=== PATIENT | female | born 1960 | race Caucasian/White ===

== ENCOUNTER 2020-07-23 12:57 | Emergency (ER) | payer BC ==
[~2020-07-23] VITALS: Ht 157.5 cm; Wt 80.7 kg
[2020-07-23 13:22] VITALS: Ht 157.5 cm; Wt 80.7 kg
[2020-07-23 15:17] VITALS: BP 125/74
== END 2020-07-23 15:17 | disposition home or self-care (01) ==
LOC: ED 12:57
DX: S61.215A Laceration without foreign body of left ring finger without damage to nail, initial encounter (principal); X58.XXXA Exposure to other specified factors, initial encounter; Y93.89 Activity, other specified; Y92.89 Other specified places as the place of occurrence of the external cause; Y99.8 Other external cause status
CPT/HCPCS: 90715; J2001

== ENCOUNTER 2020-10-19 21:31 | Emergency (ER) | payer OTHER, BC ==
[~2020-10-19] VITALS: Ht 157.5 cm; Wt 81.6 kg
[2020-10-19 21:50] VITALS: Ht 157.5 cm; Wt 81.6 kg
[2020-10-19] MEDS ORDERED: VOLTAREN100 GM TOP (23:18)
[2020-10-19] MEDS ORDERED: DICLOFENAC POT.50 M1 PO (23:18)
[2020-10-19 23:34] VITALS: BP 135/61
== END 2020-10-19 23:34 | disposition home or self-care (01) ==
LOC: ED 21:31
DX: S46.912A Strain of unspecified muscle, fascia and tendon at shoulder and upper arm level, left arm, initial encounter (principal); S63.602A Unspecified sprain of left thumb, initial encounter; S20.212A Contusion of left front wall of thorax, initial encounter; V49.3XXA Car occupant (driver) (passenger) injured in unspecified nontraffic accident, initial encounter; Y93.I9 Activity, other involving external motion; Y92.413 State road as the place of occurrence of the external cause; Y99.8 Other external cause status
CPT/HCPCS: J1885